=== PATIENT | male | born 1960 | race Hispanic/Latino ===

== ENCOUNTER 2025-02-05 17:15 | Emergency (ER) | payer OTHER, MEDICARE ==
[~2025-02-05] VITALS: Ht 175.3 cm; Wt 97.5 kg
[~2025-02-05 17:15] MED LIST: VICODIN ES TAB1 EACH PO; Z.0.KEFLEX500 MG PO
[2025-02-05 17:54] LABS: BASOPHILS % 0.1 % (0.0-1.0); EOSINOPHILS % 1.0 % (0.0-6.0); LYMPHOCYTES % 32.4 % (18.0-39.1); MONOCYTES % 7.9 % (4.4-11.3); NEUTROPHILS % 58.3 % (38.7-80.0); RED CELL DISTRIBUTION WIDTH 12.8 % (11.7-14.4)
[2025-02-05] MEDS: SODIUM CHLORIDE 0.9% 1000ML 1,000 ML IV STA (17:56)
[2025-02-05] MEDS: KETOROLAC TROMETHAMINE 30 MG/ML VIAL IV STA (18:03)
[2025-02-05] MEDS: ONDANSETRON HCL INJ 2MG/ML 2ML 2 MG/ML VIAL IV STA (18:08)
[2025-02-05 18:09] LABS: EST GLOMERULAR FILTRATION RATE 80.0 ML/MIN (>=60)
[2025-02-05 18:13] LABS: LEUKOCYTE ESTERASE ,URINE NEGATIVE (NEGATIVE); PROTEIN,URINE DIPSTICK NEGATIVE (NEGATIVE); URINE UROBILINOGEN 0.2 mg/dL (0.2 - 1)
[2025-02-05 18:14] LABS: EPITHELIAL CELLS,URINE FEW /LPF; WBC,URINE (MAN) 0-5 /HPF (0-5)
[2025-02-05] MEDS ORDERED: ULTRAM 50MG50 MG PO (19:52)
[2025-02-05] MEDS ORDERED: ONDANSETRON ODT4 MG PO (19:52)
[2025-02-05] MEDS ORDERED: FLOMAX0.4 MG PO (19:52)
[2025-02-05 20:05] VITALS: PULSE 66; RESP 17; TEMP 98.8
[2025-02-05 20:08] VITALS: BP 137/79; PULSE 66; RESP 17; TEMP 98.8; O2SAT 100
== END 2025-02-05 20:08 | disposition home or self-care (01) ==
LOC: ER 17:35
DX: R11.2 Nausea with vomiting, unspecified (principal); N20.2 Calculus of kidney with calculus of ureter; K40.90 Unilateral inguinal hernia, without obstruction or gangrene, not specified as recurrent; I10 Essential (primary) hypertension; E78.5 Hyperlipidemia, unspecified; R16.0 Hepatomegaly, not elsewhere classified; K76.0 Fatty (change of) liver, not elsewhere classified
CPT/HCPCS: 36415; 74176; 80053; 81001; 85025; 99284; J1885; J2405; J7030